=== PATIENT | female | born 1985 | race Caucasian/White ===

== ENCOUNTER → 2019-06-04 12:41 | Outpatient (CLI) | payer BC ==
[2019-06-04 14:36] VITALS: Wt 98.9 kg
== END | disposition home or self-care (01) ==
LOC: D.FANS 05-21 09:00
PROVIDERS: ATTEND Surgery
DX: E66.01 Morbid (severe) obesity due to excess calories (principal)

== ENCOUNTER → 2019-07-09 08:49 | Outpatient (CLI) | payer BC ==
[~2019-07-09 08:49] MED LIST: AMBIEN5 MG PO
[2019-07-17 07:16] VITALS: BMI 35.1
== END | disposition home or self-care (01) ==
LOC: D.OPS 08:49
PROVIDERS: ATTEND Surgery
DX: E66.01 Morbid (severe) obesity due to excess calories (principal)

== ENCOUNTER 2019-07-17 06:34 | Day surgery (SDC) | payer BC ==
[~2019-07-17] VITALS: Ht 167.6 cm; Wt 98.6 kg
[2019-07-17 07:06] LABS: HEMATOCRIT 39.9 % (36.0-48.0); HEMOGLOBIN 13.5 g/dL (12-16); MCH 27.4 pg (26.0-34.0); MCHC 33.8 g/dL (31.0-37.0); MCV 81.1 fL (80.0-100.0); RBC 4.92 10x6/uL (4.00-5.40); RDW 14.6 % (11.5-14.5); WBC 9.9 10x3/uL (4.8-10.8)
[2019-07-17] MEDS ORDERED: AMBIEN5 MG PO (07:11)
[2019-07-17 07:16] VITALS: BP 136/88; Ht 167.6 cm; Wt 98.6 kg
[2019-07-17 07:29] LABS: CALC OSMOLALITY 278 mosm/kg (275-300); CALCIUM 9.3 mg/dL (8.5-10.1); CARBON DIOXIDE 24.9 mmol/L (21.0-32.0); CHLORIDE - SERUM 106 mmol/L (98-107); CREATININE - SERUM 0.8 mg/dL (0.6-1.3); GLUCOSE 89 mg/dL (74-106); POTASSIUM - SERUM 4.1 mmol/L (3.5-5.1); SODIUM 140 mmol/L (136-145); UREA NITROGEN 15 mg/dL (7-18); eGFR NON AFRICAN AMERICAN 87 mL/min (90-120)
[2019-07-17 07:48] LABS: HCG URINE NEGATIVE (NEGATIVE)
--- NOTE | 2019-07-17 09:04 | NUR ---
DC INSTRUCTIONS GIVEN TO PT/FAMILY. STATE UNDERSTANDING. DC'D IV CATH FULLY INTACT.
--- NOTE | 2019-07-17 09:18 | NUR ---
PT LEFT UNIT VIA WC AT [id number]
== END 2019-07-17 09:16 | disposition home or self-care (01) ==
LOC: D.OPS 06:34
PROVIDERS: Anesthesiology; ATTEND Surgery
DX: E66.01 Morbid (severe) obesity due to excess calories (principal); K29.60 Other gastritis without bleeding

== ENCOUNTER 2019-09-04 08:35 | Inpatient (IN) | payer BC ==
[~2019-09-04] VITALS: Ht 167.6 cm; Wt 98.4 kg
[2019-09-13 11:56] LABS: HEMATOCRIT 41.3 % (36.0-48.0); HEMOGLOBIN 13.5 g/dL (12-16); MCH 26.8 pg (26.0-34.0); MCHC 32.7 g/dL (31.0-37.0); MCV 81.9 fL (80.0-100.0); MEAN PLATELET VOLUME 9.5 fL (7.4-10.4); RBC 5.04 10x6/uL (4.00-5.40); RDW 14.2 % (11.5-14.5); WBC 10.9 10x3/uL (4.8-10.8)
[2019-09-16] VITALS (15 sets, daily range): BP systolic 114–149; BP diastolic 71–93; BMI 35.2; BMI 35.1
[2019-09-16 06:33] LABS: HCG URINE NEGATIVE (NEGATIVE)
--- NOTE | 2019-09-16 08:43 | NUR ---
[id number] RETURNED TO [facility], FRIEND RETURNED TO BEDSIDE SURGERY DELAYED AT PRESENT TIME..
[2019-09-17 01:15] VITALS: BP 130/70
[2019-09-17 04:44] VITALS: BP 132/78
--- NOTE | 2019-09-17 06:22 | NUR ---
I have reviewed this patient and I concur with the Shift Assessment completed by the Licensed Practical Nurse today this shift.
[2019-09-17 06:38] LABS: ALBUMIN 2.9 g/dL (3.4-5.0); ALKALINE PHOSPHATASE 73 U/L (46-116); ALT (SGPT) 37 U/L (10-68); BILIRUBIN - TOTAL 0.55 mg/dL (0.2-1.3); CALC OSMOLALITY 280 mosm/kg (275-300); CALCIUM 8.6 mg/dL (8.5-10.1); CARBON DIOXIDE 24.6 mmol/L (21.0-32.0); CHLORIDE - SERUM 109 mmol/L (98-107); CREATININE - SERUM 0.8 mg/dL (0.6-1.3); GLUCOSE 105 mg/dL (74-106); POTASSIUM - SERUM 4.6 mmol/L (3.5-5.1); PROTEIN - SERUM 6.5 g/dL (6.4-8.2); SODIUM 142 mmol/L (136-145); UREA NITROGEN 8 mg/dL (7-18); eGFR NON AFRICAN AMERICAN 87 mL/min (90-120)
[2019-09-17 06:55] LABS: BASOPHILS 0.1 % (0-2); EOSINOPHILS 0 % (0-7); HEMATOCRIT 37.2 % (36.0-48.0); HEMOGLOBIN 11.7 g/dL (12-16); IMMATURE GRANULOCYTES 0.1 % (0-5); LYMPHOCYTES 12.1 % (15-50); MCH 26.7 pg (26.0-34.0); MCHC 31.5 g/dL (31.0-37.0); MCV 84.7 fL (80.0-100.0); MEAN PLATELET VOLUME 10.8 fL (7.4-10.4); MONOCYTES 6.1 % (2-11); NEUTROPHILS 81.6 % (40-80); PLATELET COUNT 243 10x3/uL (130-400); RBC 4.39 10x6/uL (4.00-5.40); RDW 14.5 % (11.5-14.5); WBC 13.7 10x3/uL (4.8-10.8)
--- NOTE | 2019-09-17 07:10 | NUR ---
PT RESTING IN BED NO SIGNS OF DISTRESS. IV TO LEFT FORARM PATENT NO REDNESS OR TENDERNESS. HAS 6 LAP SITES CLEAN AND DRY. ON 3L NC. DENIES ANY FURTHER NEED AT THIS TIME. CALL LIGHT IN REACH. BED LOW POSITION. FAMILY AT BEDSIDE AT THIS TIME.
--- NOTE | 2019-09-17 08:06 | NUR ---
1999) ASSISTED TO BATHROOM WITH ASSIST OF NURSE AND FAMILY MEMBER HALIMA DOMINGUEZ.WITH MODERATED ASSIST.CONTINUES TO C/O NAUSEA NO EMESIS DRANKED 15CC H20 THIN FINISHED REMAINING 15ML. ENCOURAGED TO WALK TO AT LEAST TO DOOR STATES NOT NOW.2044) UP TO BATHROOM.VOIDING WITHOUT DIFFICULTY. STATES NAUSEA LITTLE BETTER.WILL CONTINUE SLEEVE PROTOCOLL AND FOLLOW CURRENT PLAN OF CARE.
[2019-09-17 08:35] VITALS: BP 130/77
[2019-09-17 12:15] VITALS: BP 128/80
[2019-09-17 15:13] VITALS: Ht 167.6 cm; Wt 98.4 kg
[2019-09-17 16:51] VITALS: BP 122/81
--- NOTE | 2019-09-17 18:16 | NUR ---
I have reviewed this patient and I concur with the Shift Assessment completed by the Licensed Practical Nurse today this shift.
[2019-09-17 20:48] VITALS: BP 156/97
[2019-09-18 00:59] VITALS: BP 126/71
[2019-09-18 05:12] VITALS: BP 130/81
--- NOTE | 2019-09-18 05:17 | NUR ---
1950)REC'D. CHGE OF SHIFT WALKING ROUNDS AMBULATING IN HALWAY WITH FAMILY MEMBER IN ASSIST.HALIMA. WELL DENIES NAUSEA AT PRESENT TIME,STATES HAS DRANKED TWO 30ML CUPS H2O PRIOR TO WALKING. WILL CONTINUE TO MONITOR FOR ANY CHGES AND FOLLOW CURRENT PLAN OF CARE.2114) IV RESITED RIGHT LATERAL AC #[id number] X1 STICK BY AZAR MCCAULEY LPN.
--- NOTE | 2019-09-18 06:05 | NUR ---
I have reviewed this patient and I concur with the Shift Assessment completed by the Licensed Practical Nurse today this shift.
[2019-09-18] MEDS ORDERED: ZOFRAN ODT4 MG/UDTAB PO (08:30)
[2019-09-18] MEDS ORDERED: HYDROCODON-ACE1 EAC7 PO (08:30)
[2019-09-18 08:35] LABS: BASOPHILS 0.2 % (0-2); EOSINOPHILS 1.3 % (0-7); IMMATURE GRANULOCYTES 0.4 % (0-5); LYMPHOCYTES 20.7 % (15-50); MCH 26.8 pg (26.0-34.0); MCHC 31.6 g/dL (31.0-37.0); MEAN PLATELET VOLUME 9.8 fL (7.4-10.4); MONOCYTES 7.4 % (2-11); PLATELET COUNT 242 10x3/uL (130-400); RBC 4.47 10x6/uL (4.00-5.40); RDW 14.6 % (11.5-14.5)
[2019-09-18 08:37] VITALS: BP 158/99
[2019-09-18 08:39] LABS: WBC 9.6 10x3/uL (4.8-10.8)
[2019-09-18 08:43] LABS: CALC OSMOLALITY 277 mosm/kg (275-300); CALCIUM 8.8 mg/dL (8.5-10.1); CARBON DIOXIDE 24.7 mmol/L (21.0-32.0); CHLORIDE - SERUM 107 mmol/L (98-107); CREATININE - SERUM 0.8 mg/dL (0.6-1.3); GLUCOSE 89 mg/dL (74-106); POTASSIUM - SERUM 3.8 mmol/L (3.5-5.1); SODIUM 141 mmol/L (136-145); UREA NITROGEN 8 mg/dL (7-18); eGFR NON AFRICAN AMERICAN 87 mL/min (90-120)
--- NOTE | 2019-09-18 10:22 | NUR ---
REVIEWED D/C ORDERS WITH PT, RX ESCRIBED TO BUCKS, IV REMOVED, TIP INTACT
== END 2019-09-18 10:40 | disposition home or self-care (01) | DRG 621 ==
LOC: D.MS 09-16 06:00 → D.SDCHOLD 09-16 06:00 → D.MS 09-16 12:15
PROVIDERS: Anesthesiology; ADMIT Surgery; ATTEND Surgery
PROC: 0DB64Z3 Excision of Stomach, Percutaneous Endoscopic Approach, Vertical (ICD-10-PCS; principal; 2019-09-16 08:00)
PROC: 0BQT4ZZ Repair Diaphragm, Percutaneous Endoscopic Approach (ICD-10-PCS; 2019-09-16 08:00)
DX: E66.01 Morbid (severe) obesity due to excess calories (principal); K44.9 Diaphragmatic hernia without obstruction or gangrene; Z68.35 Body mass index [BMI] 35.0-35.9, adult; N99.89 Other postprocedural complications and disorders of genitourinary system; J45.909 Unspecified asthma, uncomplicated